=== PATIENT | female | born 1980 | race Caucasian/White ===

== ENCOUNTER 2018-10-10 16:12 | Emergency (ER) | payer MEDICARE, MEDICAID ==
[~2018-10-10] VITALS: Ht 172.7 cm; Wt 70.4 kg
[2018-10-10 16:39] VITALS: BP 118/51
== END 2018-10-10 23:09 | disposition left against medical advice (07) ==
LOC: ER 16:12
DX: N89.8 Other specified noninflammatory disorders of vagina (principal); Z53.21 Procedure and treatment not carried out due to patient leaving prior to being seen by health care provider

== ENCOUNTER 2018-12-28 14:24 | Emergency (ER) | payer MEDICARE, MEDICAID ==
[~2018-12-28] VITALS: Ht 167.6 cm; Wt 70.9 kg
[2018-12-28] MEDS ORDERED: albuterol 2.5 mg/0.5ml nebule NEB ONE (14:55)
[2018-12-28] MEDS ORDERED: albuterol 2.5 MG/3 ML nebule NEB ONE (15:00)
[2018-12-28] MEDS ORDERED: albuterol 2.5 MG/3 ML nebule ONE (15:24)
--- NOTE | 2018-12-28 15:27 | NUR ---
RT AT BEDSIDE TO ADMINISTER BREATHING TREATMENT.
[2018-12-28 16:34] VITALS: BP 108/71
[2018-12-28] MEDS ORDERED: ALBU8HFA PO (21:16)
== END 2018-12-28 16:35 | disposition home or self-care (01) ==
LOC: ER 14:25
DX: J06.9 Acute upper respiratory infection, unspecified (principal); Z87.891 Personal history of nicotine dependence; Z88.2 Allergy status to sulfonamides
CPT/HCPCS: 36415; 87502; 87503; 93005; 94640; 99284; J7611

== ENCOUNTER 2018-12-28 19:49 | Emergency (ER) | payer MEDICARE, MEDICAID ==
[~2018-12-28] VITALS: Ht 167.6 cm; Wt 72.7 kg
[2018-12-28] MEDS ORDERED: ALBU8HFA PO (21:16)
[2018-12-28 21:20] VITALS: BP 135/76
== END 2018-12-28 21:21 | disposition home or self-care (01) ==
LOC: ER 19:50
DX: O99.519 Diseases of the respiratory system complicating pregnancy, unspecified trimester (principal); J45.901 Unspecified asthma with (acute) exacerbation; Z76.0 Encounter for issue of repeat prescription; Z88.2 Allergy status to sulfonamides; Z3A.00 Weeks of gestation of pregnancy not specified
CPT/HCPCS: 93005; 99283

== ENCOUNTER 2019-02-02 14:18 | Emergency (ER) | payer MEDICARE, MEDICAID ==
[~2019-02-02] VITALS: Ht 167.6 cm; Wt 75.0 kg
[2019-02-02 14:49] LABS: BASOPHILS # (AUTO) 0.1 X10'3 (0-0.2); BASOPHILS % (AUTO) 0.5 % (0-1); EOSINOPHILS # (AUTO) 0.2 X10'3 (0-0.9); EOSINOPHILS % (AUTO) 1.3 % (0-6); HEMOGLOBIN 12.1 g/dl (12.0-16.0); LYMPHOCYTES # (AUTO) 2.1 X10'3 (1.1-4.8); LYMPHOCYTES % (AUTO) 14.8 % (21-51); MEAN CORPUSCULAR HEMOGLOBIN 31.2 PG (27.0-31.0); MEAN CORPUSCULAR HGB CONC 34.6 g/dL (33.0-36.5); MEAN CORPUSCULAR VOLUME 90.4 FL (78-98); MEAN PLATELET VOLUME 8.8 FL (7.4-10.4); MONOCYTES # (AUTO) 0.6 X10'3 (0-0.9); MONOCYTES % (AUTO) 4.1 % (2-12); NEUTROPHILS # (AUTO) 11.2 X10'3 (1.8-7.7); NEUTROPHILS % (AUTO) 79.3 % (42-75); PLATELET COUNT 259 X10'3 (140-440); RED BLOOD COUNT 3.88 X10'6 (4.20-5.60); RED CELL DISTRIBUTION WIDTH 13.4 % (11.5-14.5); WHITE BLOOD COUNT 14.2 X10'3 (4.5-11.0)
[2019-02-02 14:52] LABS: URINE HCG NEGATIVE (NEG)
[2019-02-02 14:54] LABS: CLARITY,URINE CLEAR (Clear); COLOR,URINE YELLOW (Yellow); GLUCOSE, URINE NEGATIVE (Neg); KETONES,URINE TRACE mg/dl (Neg); LEUKOCYTE ESTERASE ,URINE NEGATIVE (Neg); NITRITES, URINE NEGATIVE (Neg); OCCULT BLOOD,URINE TRACE-INTACT (Neg); PROTEIN,URINE NEGATIVE (Neg); UA COLLECTION TYPE CLN CATCH MIDSTREAM
[2019-02-02 14:58] LABS: URINE AMPHETAMINE SCREEN NEGATIVE (Neg); URINE BARBITUATE SCREEN NEGATIVE (Neg); URINE BENZODIAZEPINES SCREEN NEGATIVE (Neg); URINE CANNABINOID SCREEN NEGATIVE (Neg); URINE COCAINE SCREEN NEGATIVE (Neg); URINE METHADONE SCREEN NEGATIVE (Neg); URINE OPIATE SCREEN NEGATIVE (Neg); URINE PHENCYCLIDINE SCREEN NEGATIVE (Neg)
--- NOTE | 2019-02-02 14:58 | NUR ---
PT IS MAKING BIZARRE STATEMENTS ABOUT NEEDING SURGERY FROM [facility] AND THAT HER SENIOR BI DEVELOPER ONLY SENT HER TO ER BECAUSE HE WANTS TO GET HER MEDICARE.
[2019-02-02 15:03] LABS: BACTERIA,URINE 2+ /HPF (Neg); MUCUS STRANDS MODERATE /LPF (Neg); SQUAMOUS EPITHELIAL CELL,UR MODERATE /LPF (FEW)
[2019-02-02 15:06] LABS: RBC,URINE 0-2 /HPF (0-2); WBC,URINE 0-4 /HPF (0-4)
[2019-02-02 15:12] LABS: ALANINE AMINOTRANSFERASE 14 U/L (12-78); ALBUMIN 3.6 G/DL (3.4-5.0); ALBUMIN/GLOBULIN RATIO 1.3 (1.1-1.5); ALKALINE PHOSPHATASE 59 IU/L (46-116); ANION GAP 5 (8-16); ASPARTATE AMINO TRANSFERASE 11 U/L (10-37); BILIRUBIN,TOTAL 0.2 MG/DL (0.1-1.0); BLOOD UREA NITROGEN 12 MG/DL (7-18); BUN/CREATININE RATIO 12.9 (6.6-38.0); CALCIUM 8.8 MG/DL (8.5-10.1); CHLORIDE 104 MMOL/L (99-107); CREATININE 0.93 MG/DL (0.40-0.90); ETHANOL < 0.010 GM/DL (0.0-0.010); GLUCOSE 102 MG/DL (70-104); SODIUM 141 MMOL/L (135-145); TOTAL CARBON DIOXIDE 32.3 MMOL/L (24-32); TOTAL PROTEIN 6.4 G/DL (6.4-8.2); eGFR 68 ML/MIN
[2019-02-02 15:13] LABS: POTASSIUM 2.8 MMOL/L (3.5-5.1)
[2019-02-02] MEDS ORDERED: magnesium oxide 400mg tablet PO ONE (15:20)
[2019-02-02] MEDS ORDERED: potassium Cl 20 mEq SR tablet PO STA (15:20)
[2019-02-02] MEDS ORDERED: NO HOME MEDS (15:27)
[2019-02-02] MEDS ORDERED: potassium Cl 20 mEq SR tablet PO ONE (16:00)
--- NOTE | 2019-02-02 17:24 | NUR ---
Pt alert, cooperative and hyperverbal. Spending a lot of time talking to staff about a variety of topics and critical of the process of being held. Elopement band placed on pt as she began to hover around the exit and express not wanting to be here. Denies SI.
[2019-02-02] MEDS: nicotine 7mg patch - 24hr TD SCH (18:40)
--- NOTE | 2019-02-02 18:44 | NUR ---
Received report. Patient given her nicotine patch. Stated that she threw up her dinner in the bathroom. Laying on her back with mask over her face at this time. No further c/o n/v.
--- NOTE | 2019-02-02 19:16 | NUR ---
Patient asking for a book to have something to do. talking about all the jobs she has had etc.....
--- NOTE | 2019-02-02 20:15 | NUR ---
Patient sitting up reading a book. Requests extra blankets, pillows, and to have help getting comfortable with bed adjustments. Patient very talkative.
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
--- NOTE | 2019-02-02 22:06 | NUR ---
patient continues to ask for food, drinks and warm clothes. She wants hot chocolate, Triskits and long sleeves. I got her some warm tea and explained that we do not have the things she is wanting. I have already given her 3 warm blankets and a sandwich, cheese and yogurt. She is now requesting to move to a different bed.
--- NOTE | 2019-02-02 22:33 | NUR ---
Patient provided a eye mask. She again wants me to readjust her bed and more pillows. She has 2 pillows already. Provided help with bed adjustments.
--- NOTE | 2019-02-02 23:33 | NUR ---
patient given crackers and juice. now quietly resting with eye mask on.
--- NOTE | 2019-02-03 01:21 | NUR ---
Patient seems bored. Asking for something to do. Coloring papers, crayons and books have been offered. She continues to ask for pretzels and snacks. Continuing to talk about healthcare and ask for referrals to doctors and providers. Informed her that as a health care provider, I am not able to make referrals. That she should look on the internet or go through her insurance carrier.
--- NOTE | 2019-02-03 02:48 | NUR ---
patient now in bed with eye mask on. She hung out at nursing station for about an hour discussing her family dynamics and again with previous jobs she has held.
--- NOTE | 2019-02-03 05:01 | NUR ---
patient had another snack. appears to be asleep at this time.
--- NOTE | 2019-02-03 06:30 | NUR ---
Sleeping soundly upon change of shift observation. No signs or symptoms of distress. Undisturbed at this time.
[2019-02-03] MEDS: nicotine 7mg patch - 24hr TD SCH (08:00)
--- NOTE | 2019-02-03 08:00 | NUR ---
Awakened for breakfast. Picked at her food.Returned to sleep immediately afterward.
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
--- NOTE | 2019-02-03 12:40 | NUR ---
pt is in bed supine, refused lab draw, will inform
--- NOTE | 2019-02-03 13:12 | NUR ---
spoke to pt re: lab draw, she says she does not care that her k is low, does not care about her other labs, she states that the poassium made her ill this morning and that she is not going to take it, I explained that there are other routes to give the medication, she refused labs again, said that she ate a banana, she will be fine
--- NOTE | 2019-02-03 13:57 | NUR ---
Patient agreed to lab draw at this time. Blood drawn by Hakan abdalla
[2019-02-03] MEDS ORDERED: nicotine 7mg patch - 24hr TD SCH (14:18)
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
--- NOTE | 2019-02-03 14:58 | NUR ---
Asking staff repeatedly to take her outside for a cigarette. Unable to accept that this is a non-smoking hospital. Obscessed with the need to go outside and smoke. Given a nicotine patch to help with nicotine cravings.
--- NOTE | 2019-02-03 17:08 | NUR ---
Call received from Jana at [facility] for nurse to nurse report. Report given.
[2019-02-03 17:18] VITALS: BP 111/61
--- NOTE | 2019-02-03 17:21 | NUR ---
Call received from Eleni from the [facility] office stating patient had been accepted to [facility] by Dr. Greer. Distribution Agent will be here in approximately 30 minutes to transport patient.
--- NOTE | 2019-02-03 18:14 | NUR ---
Patient standing at nursing station talking to the tech regarding her belongings. He continues to educate her that her belonging will be going with her but she couldnt have them at this time.
--- NOTE | 2019-02-03 18:20 | NUR ---
Patient ride here to discharge patient to another facility.
== END 2019-02-03 18:20 ==
LOC: ER 14:18
DX: R45.851 Suicidal ideations (principal); F10.129 Alcohol abuse with intoxication, unspecified; R44.0 Auditory hallucinations; E87.6 Hypokalemia; Z88.2 Allergy status to sulfonamides; Y90.9 Presence of alcohol in blood, level not specified
CPT/HCPCS: 36415; 80053; 80305; 80320; 81001; 81025; 84132; 84443; 85025; 99285

== ENCOUNTER 2020-01-16 20:17 | Emergency (ER) | payer MEDICAID, MEDICARE ==
[~2020-01-16] VITALS: Ht 172.7 cm; Wt 85.0 kg
[~2020-01-16 20:17] MED LIST: NO HOME MEDS
[2020-01-16 20:24] VITALS: BP 129/85
[2020-01-16] MEDS ORDERED: CLIN-97 PO ×2 (20:40→21:06)
[2020-01-16] MEDS ORDERED: HYDR-3965 PO ×2 (20:40→21:06)
== END 2020-01-16 21:13 | disposition home or self-care (01) ==
LOC: ER 20:18
DX: K08.89 Other specified disorders of teeth and supporting structures (principal); Z88.2 Allergy status to sulfonamides; Z79.2 Long term (current) use of antibiotics
CPT/HCPCS: 99283

== ENCOUNTER 2020-01-21 19:25 | Emergency (ER) | payer MEDICARE ==
[~2020-01-21] VITALS: Ht 172.7 cm; Wt 85.9 kg
[~2020-01-21 19:25] MED LIST changes: +CLIN-97 PO
[2020-01-21 19:30] VITALS: BP 121/84
[2020-01-21] MEDS ORDERED: TRAM50TA2 PO (19:55)
== END 2020-01-21 20:10 | disposition home or self-care (01) ==
LOC: ER 19:26
DX: K08.89 Other specified disorders of teeth and supporting structures (principal); Z88.0 Allergy status to penicillin; Z88.2 Allergy status to sulfonamides; Z79.2 Long term (current) use of antibiotics; Z79.899 Other long term (current) drug therapy
CPT/HCPCS: 99283

== ENCOUNTER 2020-02-14 19:39 | Emergency (ER) | payer MEDICARE ==
[~2020-02-14] VITALS: Ht 172.7 cm; Wt 86.7 kg
[2020-02-14 19:43] VITALS: BP 161/92
== END 2020-02-14 20:11 | disposition home or self-care (01) ==
LOC: ER 19:40
DX: J31.2 Chronic pharyngitis (principal); M79.675 Pain in left toe(s); G89.29 Other chronic pain; Z88.0 Allergy status to penicillin; Z88.2 Allergy status to sulfonamides; Z79.2 Long term (current) use of antibiotics
CPT/HCPCS: 99282

== ENCOUNTER 2020-02-25 20:23 | Emergency (ER) | payer MEDICARE ==
[~2020-02-25] VITALS: Ht 172.7 cm; Wt 84.0 kg
[2020-02-25 20:27] VITALS: BP 155/86
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
[2020-02-25] MEDS ORDERED: DICY10CA88 PO (21:49)
[2020-02-25] MEDS ORDERED: PROM12.512 PO (21:49)
== END 2020-02-25 21:55 | disposition home or self-care (01) ==
LOC: ER 20:23
DX: R11.0 Nausea (principal); Z88.0 Allergy status to penicillin; Z88.2 Allergy status to sulfonamides; Z79.899 Other long term (current) drug therapy
CPT/HCPCS: 99283

== ENCOUNTER 2020-03-15 19:22 | Emergency (ER) | payer MEDICARE ==
[~2020-03-15] VITALS: Ht 175.3 cm; Wt 85.9 kg
[~2020-03-15 19:22] MED LIST changes: +DICY10CA88 PO; +PROM12.512 PO
--- NOTE | 2020-03-15 19:45 | NUR ---
SPOKE WITH EDMD ELIJAH REGARDING PT COMPLAINTS DURING TRIAGE, NO EKG OR BLOOD WORK AT THIS TIME PER ELIJAH.
[2020-03-15 20:33] LABS: BASOPHILS # (AUTO) 0.1 X10'3 (0-0.2); BASOPHILS % (AUTO) 1.1 % (0-1); EOSINOPHILS # (AUTO) 0.2 X10'3 (0-0.9); EOSINOPHILS % (AUTO) 2.8 % (0-6); HEMATOCRIT 41.1 % (35.0-45.0); LYMPHOCYTES % (AUTO) 34.6 % (21-51); MEAN CORPUSCULAR HEMOGLOBIN 31.4 PG (27.0-31.0); MEAN CORPUSCULAR VOLUME 92.1 FL (78-98); MEAN PLATELET VOLUME 9.6 FL (7.4-10.4); MONOCYTES # (AUTO) 0.5 X10'3 (0-0.9); MONOCYTES % (AUTO) 6.4 % (2-12); NEUTROPHILS # (AUTO) 4.7 X10'3 (1.8-7.7); NEUTROPHILS % (AUTO) 55.1 % (42-75); PLATELET COUNT 194 X10'3 (140-440); RED BLOOD COUNT 4.46 X10'6 (4.20-5.60); RED CELL DISTRIBUTION WIDTH 14.1 % (11.5-14.5); WHITE BLOOD COUNT 8.6 X10'3 (4.5-11.0)
[2020-03-15] MEDS ORDERED: famotidine 20mg tablet PO ONE (20:45)
[2020-03-15] MEDS ORDERED: ondansetron 4mg rapidly disintigrating tab PO ONE (20:45)
[2020-03-15 20:46] LABS: ALANINE AMINOTRANSFERASE 33 U/L (12-78); ALBUMIN 3.6 G/DL (3.4-5.0); ALBUMIN/GLOBULIN RATIO 1.2 (1.1-1.5); ALKALINE PHOSPHATASE 63 IU/L (46-116); ANION GAP 9 (8-16); ASPARTATE AMINO TRANSFERASE 20 U/L (10-37); BILIRUBIN,TOTAL 0.2 MG/DL (0.1-1.0); BLOOD UREA NITROGEN 9 MG/DL (7-18); BUN/CREATININE RATIO 10.6 (6.6-38.0); CALCIUM 8.4 MG/DL (8.5-10.1); CHLORIDE 108 MMOL/L (99-107); CREATININE 0.85 MG/DL (0.40-0.90); GLUCOSE 88 MG/DL (70-104); LIPASE 107 U/L (73-393); POTASSIUM 3.7 MMOL/L (3.5-5.1); SODIUM 144 MMOL/L (135-145); TOTAL PROTEIN 6.6 G/DL (6.4-8.2); eGFR 75 ML/MIN
[2020-03-15 20:53] LABS: CLARITY,URINE CLEAR (Clear); COLOR,URINE YELLOW (Yellow); GLUCOSE, URINE NEGATIVE (Neg); KETONES,URINE NEGATIVE (Neg); LEUKOCYTE ESTERASE ,URINE NEGATIVE (Neg); NITRITES, URINE NEGATIVE (Neg); OCCULT BLOOD,URINE NEGATIVE (Neg); PROTEIN,URINE NEGATIVE (Neg); UROBILINOGEN,URINE 0.2 E.U/dL (0.2-1.0)
[2020-03-15 20:55] LABS: UA COLLECTION TYPE CLN CATCH MIDSTREAM; URINE HCG NEGATIVE (NEG)
[2020-03-15] MEDS ORDERED: FAMO-128 PO (21:02)
[2020-03-15 21:20] VITALS: BP 125/87
== END 2020-03-15 21:21 | disposition home or self-care (01) ==
LOC: ER 19:23
DX: R11.2 Nausea with vomiting, unspecified (principal); R10.9 Unspecified abdominal pain; Z88.0 Allergy status to penicillin; Z88.2 Allergy status to sulfonamides; Z79.2 Long term (current) use of antibiotics; Z79.899 Other long term (current) drug therapy
CPT/HCPCS: 36415; 80053; 81003; 81025; 83690; 85025; 99283

== ENCOUNTER 2020-04-03 17:11 | Emergency (ER) | payer MEDICARE, MEDICAID ==
[~2020-04-03] VITALS: Ht 180.3 cm; Wt 95.0 kg
[~2020-04-03 17:11] MED LIST changes: +FAMO-128 PO
[2020-04-03 17:17] VITALS: BP 147/97
== END 2020-04-03 18:34 | disposition home or self-care (01) ==
LOC: ER 17:12
DX: R09.89 Other specified symptoms and signs involving the circulatory and respiratory systems (principal); F17.200 Nicotine dependence, unspecified, uncomplicated; F12.90 Cannabis use, unspecified, uncomplicated; Z72.89 Other problems related to lifestyle; Z00.00 Encounter for general adult medical examination without abnormal findings; Z88.0 Allergy status to penicillin; Z88.2 Allergy status to sulfonamides; Z79.899 Other long term (current) drug therapy
CPT/HCPCS: 99281; 99282

== ENCOUNTER 2020-04-13 06:44 | Emergency (ER) | payer MEDICARE, MEDICAID ==
[~2020-04-13] VITALS: Ht 165.1 cm; Wt 72.0 kg
[2020-04-13 07:29] VITALS: BP 131/76
== END 2020-04-13 07:33 | disposition home or self-care (01) ==
LOC: ER 06:45
DX: H53.8 Other visual disturbances (principal); Z00.8 Encounter for other general examination
CPT/HCPCS: 99281; 99282

== ENCOUNTER 2020-04-18 23:41 | Emergency (ER) | payer MEDICARE, MEDICAID ==
[~2020-04-18] VITALS: Ht 172.7 cm; Wt 86.4 kg
[2020-04-19] MEDS ORDERED: bacitracin 15gm ointment TP ONE (00:20)
[2020-04-19 00:49] VITALS: BP 112/74
== END 2020-04-19 00:48 | disposition home or self-care (01) ==
LOC: ER 23:42
DX: L70.0 Acne vulgaris (principal); J45.909 Unspecified asthma, uncomplicated; F12.90 Cannabis use, unspecified, uncomplicated; Z88.0 Allergy status to penicillin; Z88.2 Allergy status to sulfonamides
CPT/HCPCS: 99283

== ENCOUNTER 2020-05-05 02:25 | Emergency (ER) | payer MEDICARE, MEDICAID ==
[~2020-05-05] VITALS: Ht 172.7 cm; Wt 85.0 kg
[2020-05-05 02:32] VITALS: BP 130/72
[2020-05-05] MEDS ORDERED: FAMO40TA73 PO (02:40)
[2020-05-05] MEDS ORDERED: ONDA8TAB6 PO (02:40)
[2020-05-05] MEDS ORDERED: CLIN-97 PO (02:40)
== END 2020-05-05 02:48 | disposition home or self-care (01) ==
LOC: ER 02:25
DX: K08.89 Other specified disorders of teeth and supporting structures (principal); J45.909 Unspecified asthma, uncomplicated; F12.90 Cannabis use, unspecified, uncomplicated; Z86.69 Personal history of other diseases of the nervous system and sense organs; Z88.0 Allergy status to penicillin; Z88.2 Allergy status to sulfonamides; Z79.2 Long term (current) use of antibiotics; Z79.899 Other long term (current) drug therapy
CPT/HCPCS: 99283

== ENCOUNTER 2020-05-12 13:58 | Emergency (ER) | payer MEDICARE, MEDICAID ==
[~2020-05-12] VITALS: Ht 172.7 cm; Wt 84.5 kg
[~2020-05-12 13:58] MED LIST changes: +FAMO40TA73 PO; +ONDA8TAB6 PO
[2020-05-12 15:01] VITALS: BP 126/74
== END 2020-05-12 15:02 | disposition home or self-care (01) ==
LOC: ER 13:59
DX: J02.9 Acute pharyngitis, unspecified (principal); J45.909 Unspecified asthma, uncomplicated; F12.90 Cannabis use, unspecified, uncomplicated; Z86.69 Personal history of other diseases of the nervous system and sense organs; Z72.89 Other problems related to lifestyle; Z88.0 Allergy status to penicillin; Z88.2 Allergy status to sulfonamides; Z79.2 Long term (current) use of antibiotics; Z79.899 Other long term (current) drug therapy
CPT/HCPCS: 99281

== ENCOUNTER 2020-05-19 19:18 | Emergency (ER) | payer MEDICARE, MEDICAID ==
[~2020-05-19] VITALS: Ht 172.7 cm; Wt 84.5 kg
[2020-05-19 20:51] VITALS: BP 116/73
== END 2020-05-19 20:53 | disposition home or self-care (01) ==
LOC: ER 19:19
DX: R41.0 Disorientation, unspecified (principal); J45.909 Unspecified asthma, uncomplicated; F12.90 Cannabis use, unspecified, uncomplicated; Z00.00 Encounter for general adult medical examination without abnormal findings; Z86.69 Personal history of other diseases of the nervous system and sense organs; Z72.89 Other problems related to lifestyle; Z88.0 Allergy status to penicillin; Z88.2 Allergy status to sulfonamides; Z79.2 Long term (current) use of antibiotics; Z79.899 Other long term (current) drug therapy
CPT/HCPCS: 99281; 99283

== ENCOUNTER 2020-10-15 13:03 | Emergency (ER) | payer MEDICARE, MEDICAID ==
[~2020-10-15] VITALS: Ht 172.7 cm; Wt 59.0 kg
[2020-10-15 13:11] VITALS: BP 117/82
[2020-10-15] MEDS ORDERED: ketorolac trometh. 30mg/ml inj. IM ONE (15:15)
[2020-10-15] MEDS ORDERED: CYCL-394 PO (15:21)
== END 2020-10-15 15:36 | disposition home or self-care (01) ==
LOC: ER 13:04
DX: M62.831 Muscle spasm of calf (principal); M54.5 Low back pain; J45.909 Unspecified asthma, uncomplicated; F12.90 Cannabis use, unspecified, uncomplicated; Z86.69 Personal history of other diseases of the nervous system and sense organs; Z72.89 Other problems related to lifestyle; Z88.0 Allergy status to penicillin; Z88.2 Allergy status to sulfonamides; Z79.899 Other long term (current) drug therapy
CPT/HCPCS: 96372; 99283; J1885

== ENCOUNTER 2021-04-01 14:04 | Emergency (ER) | payer MEDICARE, MEDICAID ==
[~2021-04-01] VITALS: Ht 172.7 cm; Wt 73.9 kg
[2021-04-01 14:49] VITALS: BP 144/83
[2021-04-01 17:03] LABS: BASOPHILS % (AUTO) 0.5 % (0-1); EOSINOPHILS # (AUTO) 0.1 X10'3 (0-0.9); EOSINOPHILS % (AUTO) 1.9 % (0-6); HEMATOCRIT 42.5 % (35.0-45.0); HEMOGLOBIN 14.3 g/dl (12.0-16.0); LYMPHOCYTES # (AUTO) 2.1 X10'3 (1.1-4.8); LYMPHOCYTES % (AUTO) 31.5 % (21-51); MEAN CORPUSCULAR HEMOGLOBIN 31.1 PG (27.0-31.0); MEAN CORPUSCULAR HGB CONC 33.6 g/dL (33.0-36.5); MEAN CORPUSCULAR VOLUME 92.6 FL (78-98); MEAN PLATELET VOLUME 9.1 FL (7.4-10.4); MONOCYTES # (AUTO) 0.4 X10'3 (0-0.9); MONOCYTES % (AUTO) 5.5 % (2-12); NEUTROPHILS # (AUTO) 4.1 X10'3 (1.8-7.7); NEUTROPHILS % (AUTO) 60.6 % (42-75); PLATELET COUNT 216 X10'3 (140-440); RED BLOOD COUNT 4.58 X10'6 (4.20-5.60); RED CELL DISTRIBUTION WIDTH 14.3 % (11.5-14.5); WHITE BLOOD COUNT 6.7 X10'3 (4.5-11.0)
[2021-04-01 17:18] LABS: ALANINE AMINOTRANSFERASE 19 U/L (12-78); ALBUMIN 3.8 G/DL (3.4-5.0); ALBUMIN/GLOBULIN RATIO 1.2 (1.1-1.5); ALKALINE PHOSPHATASE 58 IU/L (46-116); ANION GAP 7 (8-16); ASPARTATE AMINO TRANSFERASE 20 U/L (10-37); BILIRUBIN,TOTAL 0.2 MG/DL (0.1-1.0); BLOOD UREA NITROGEN 9 MG/DL (7-18); BUN/CREATININE RATIO 14.5 (6.6-38.0); CALCIUM 8.1 MG/DL (8.5-10.1); CHLORIDE 105 MMOL/L (99-107); CREATININE 0.62 MG/DL (0.40-0.90); GLUCOSE 98 MG/DL (70-104); LIPASE 82 U/L (73-393); POTASSIUM 3.9 MMOL/L (3.5-5.1); SODIUM 137 MMOL/L (135-145); TOTAL CARBON DIOXIDE 25.3 MMOL/L (24-32); TOTAL PROTEIN 7.1 G/DL (6.4-8.2); eGFR > 90 ML/MIN
[2021-04-01 17:24] LABS: CLARITY,URINE SLIGHTLY CLOUDY (Clear); COLOR,URINE YELLOW (Yellow); GLUCOSE, URINE NEGATIVE (Neg); KETONES,URINE NEGATIVE (Neg); LEUKOCYTE ESTERASE ,URINE NEGATIVE (Neg); NITRITES, URINE NEGATIVE (Neg); OCCULT BLOOD,URINE NEGATIVE (Neg); PROTEIN,URINE NEGATIVE (Neg); UROBILINOGEN,URINE 0.2 E.U/dL (0.2-1.0)
[2021-04-01 17:25] LABS: UA COLLECTION TYPE CLN CATCH MIDSTREAM
[2021-04-01 17:48] LABS: SQUAMOUS EPITHELIAL CELL,UR MODERATE /LPF (FEW)
[2021-04-01 17:49] LABS: BACTERIA,URINE 2+ /HPF (Neg)
[2021-04-01 17:50] LABS: RBC,URINE 0-2 /HPF (0-2); WBC,URINE 0-4 /HPF (0-4)
== END 2021-04-01 18:25 | disposition home or self-care (01) ==
LOC: ER 14:04
DX: R10.11 Right upper quadrant pain (principal); R51.9 Headache, unspecified; R09.82 Postnasal drip; J34.89 Other specified disorders of nose and nasal sinuses; R09.81 Nasal congestion; F12.90 Cannabis use, unspecified, uncomplicated; J45.909 Unspecified asthma, uncomplicated; Z86.69 Personal history of other diseases of the nervous system and sense organs; Z72.89 Other problems related to lifestyle; Z88.0 Allergy status to penicillin; Z88.2 Allergy status to sulfonamides; Z79.2 Long term (current) use of antibiotics; Z79.899 Other long term (current) drug therapy
CPT/HCPCS: 36415; 76700; 80053; 81001; 83690; 85025; 99284

== ENCOUNTER 2022-09-15 21:49 | Emergency (ER) | payer MEDICARE, MEDICAID ==
[~2022-09-15] VITALS: Ht 172.7 cm; Wt 77.3 kg
[2022-09-15 22:19] VITALS: BP 114/77
[2022-09-15] MEDS ORDERED: HYDROcodone/acetaminophen 5mg/325mg tablet PO ONE (22:45)
[2022-09-15] MEDS ORDERED: clindamycin 150mg capsule PO ONE (22:45)
[2022-09-15] MEDS ORDERED: ONDA4TAB12 PO (22:48)
[2022-09-15] MEDS ORDERED: HYDR-3965 PO (22:48)
[2022-09-15] MEDS ORDERED: CLIN300C70 PO (22:48)
== END 2022-09-15 23:13 | disposition home or self-care (01) ==
LOC: ER 21:50
DX: K08.89 Other specified disorders of teeth and supporting structures (principal); J45.909 Unspecified asthma, uncomplicated; F12.90 Cannabis use, unspecified, uncomplicated; Z86.69 Personal history of other diseases of the nervous system and sense organs; Z72.89 Other problems related to lifestyle; Z88.0 Allergy status to penicillin; Z88.2 Allergy status to sulfonamides; Z79.2 Long term (current) use of antibiotics; Z79.899 Other long term (current) drug therapy
CPT/HCPCS: 99283

== ENCOUNTER 2023-01-31 00:09 | Emergency (ER) | payer MEDICARE, MEDICAID ==
[~2023-01-31] VITALS: Ht 170.2 cm; Wt 86.8 kg
[~2023-01-31 00:09] MED LIST changes: +ONDA4TAB12 PO
[2023-01-31 00:24] VITALS: BP 116/85
== END 2023-01-31 03:12 | disposition left against medical advice (07) ==
LOC: ER 00:10
DX: K08.89 Other specified disorders of teeth and supporting structures (principal); Z53.21 Procedure and treatment not carried out due to patient leaving prior to being seen by health care provider
CPT/HCPCS: 99281

== ENCOUNTER 2023-07-01 00:14 | Emergency (ER) | payer MEDICARE, MEDICAID ==
[~2023-07-01] VITALS: Ht 175.3 cm; Wt 72.7 kg
[2023-07-01 01:31] LABS: BASOPHILS # (AUTO) 0.1 X10'3 (0-0.2); BASOPHILS % (AUTO) 0.6 % (0-1); EOSINOPHILS # (AUTO) 0.3 X10'3 (0-0.9); EOSINOPHILS % (AUTO) 2.2 % (0-6); HEMATOCRIT 39.4 % (35.0-45.0); HEMOGLOBIN 13.2 g/dl (12.0-16.0); LYMPHOCYTES # (AUTO) 2.7 X10'3 (1.1-4.8); LYMPHOCYTES % (AUTO) 18.9 % (21-51); MEAN CORPUSCULAR HEMOGLOBIN 30.3 PG (27.0-31.0); MEAN CORPUSCULAR HGB CONC 33.6 g/dL (33.0-36.5); MEAN CORPUSCULAR VOLUME 90.2 FL (78-98); MEAN PLATELET VOLUME 9.3 FL (7.4-10.4); MONOCYTES # (AUTO) 0.7 X10'3 (0-0.9); MONOCYTES % (AUTO) 4.7 % (2-12); NEUTROPHILS # (AUTO) 10.5 X10'3 (1.8-7.7); NEUTROPHILS % (AUTO) 73.6 % (42-75); PLATELET COUNT 209 X10'3 (140-440); RED BLOOD COUNT 4.37 X10'6 (4.20-5.60); RED CELL DISTRIBUTION WIDTH 13.9 % (11.5-14.5); WHITE BLOOD COUNT 14.3 X10'3 (4.5-11.0)
[2023-07-01 01:41] LABS: ALANINE AMINOTRANSFERASE 44 U/L (12-78); ALBUMIN 3.6 G/DL (3.4-5.0); ALBUMIN/GLOBULIN RATIO 1.1 (1.1-1.5); ALKALINE PHOSPHATASE 66 IU/L (46-116); ANION GAP 7 (8-16); ASPARTATE AMINO TRANSFERASE 48 U/L (10-37); BILIRUBIN,TOTAL 0.5 MG/DL (0.1-1.0); BLOOD UREA NITROGEN 19 MG/DL (7-18); BUN/CREATININE RATIO 25.7 (10.0-20.0); CALCIUM 8.8 MG/DL (8.5-10.1); CHLORIDE 102 MMOL/L (99-107); CREATININE 0.74 MG/DL (0.40-0.90); GLUCOSE 91 MG/DL (70-104); POTASSIUM 3.3 MMOL/L (3.5-5.1); SODIUM 138 MMOL/L (135-145); TOTAL CARBON DIOXIDE 29.2 MMOL/L (24-32); TOTAL PROTEIN 6.8 G/DL (6.4-8.2); eCRCL 105 ML/MIN; eGFR 86 ML/MIN
[2023-07-01 01:51] LABS: MAGNESIUM 2.1 MG/DL (1.5-2.4)
[2023-07-01 01:52] LABS: CREATINE KINASE 1162 U/L (26-192)
[2023-07-01] MEDS ORDERED: normal saline 1000ML IV soln IVB ONE (03:10)
[2023-07-01] MEDS ORDERED: ondansetron 4mg rapidly disintigrating tab PO ONE (03:15)
[2023-07-01] MEDS ORDERED: POTASSIUM BICARB 20meq eff tab 20 MEQ TABLET.EFF PO ONE (03:15)
[2023-07-01 05:45] LABS: URINE HCG NEGATIVE (NEG)
[2023-07-01 05:48] LABS: BILIRUBIN,URINE NEGATIVE (Neg); COLOR,URINE STRAW (Yellow); GLUCOSE, URINE NEGATIVE (Neg); KETONES,URINE 15 mg/dl (Neg); LEUKOCYTE ESTERASE ,URINE TRACE (Neg); NITRITES, URINE NEGATIVE (Neg); OCCULT BLOOD,URINE TRACE-INTACT (Neg); PROTEIN,URINE NEGATIVE (Neg); UROBILINOGEN,URINE 0.2 E.U/dL (0.2-1.0)
[2023-07-01 05:55] LABS: CLARITY,URINE SLIGHTLY CLOUDY (Clear); UA COLLECTION TYPE CLN CATCH MIDSTREAM; URINE AMPHETAMINE SCREEN POSITIVE (Neg); URINE BARBITUATE SCREEN NEGATIVE (Neg); URINE BENZODIAZEPINES SCREEN NEGATIVE (Neg); URINE CANNABINOID SCREEN NEGATIVE (Neg); URINE COCAINE SCREEN NEGATIVE (Neg); URINE METHADONE SCREEN NEGATIVE (Neg); URINE OPIATE SCREEN NEGATIVE (Neg); URINE PHENCYCLIDINE SCREEN NEGATIVE (Neg)
[2023-07-01 05:57] LABS: WBC,URINE 0-4 /HPF (0-4)
[2023-07-01 05:58] LABS: BACTERIA,URINE 2+ /HPF (Neg); MUCUS STRANDS FEW /LPF (Neg); RBC,URINE 0-2 /HPF (0-2); SQUAMOUS EPITHELIAL CELL,UR MODERATE /LPF (FEW)
[2023-07-01] MEDS ORDERED: acetaminophen 325mg tablet PO ONE (06:05)
[2023-07-01 06:33] VITALS: BP 127/68; PULSE 95; RESP 16; TEMP 98.2; O2SAT 95
== END 2023-07-01 06:34 | disposition home or self-care (01) ==
LOC: ER 00:14
DX: L55.9 Sunburn, unspecified (principal); F15.10 Other stimulant abuse, uncomplicated; E87.6 Hypokalemia
CPT/HCPCS: 36415; 80053; 80305; 81001; 81025; 82550; 83735; 83874; 85025; 87088; 96360; 99284; J7030

== ENCOUNTER 2023-07-01 06:44 | Emergency (ER) | payer MEDICARE, MEDICAID ==
[~2023-07-01] VITALS: Ht 172.7 cm; Wt 90.0 kg
[2023-07-01 06:46] VITALS: TEMP 97.8
[2023-07-01 07:36] VITALS: BP 103/65; PULSE 94; RESP 18; O2SAT 99
== END 2023-07-01 08:09 | disposition left against medical advice (07) ==
LOC: ER 06:46
DX: R60.0 Localized edema (principal); Z53.21 Procedure and treatment not carried out due to patient leaving prior to being seen by health care provider
CPT/HCPCS: 99281

== ENCOUNTER 2023-07-08 14:20 | Emergency (ER) | payer MEDICARE, MEDICAID ==
[~2023-07-08] VITALS: Ht 177.8 cm; Wt 80.0 kg
[2023-07-08 17:06] LABS: STREP A SCREEN NEGATIVE (Neg)
[2023-07-08] MEDS ORDERED: diphenhydrAMINE 25 MG/10 ML UD oral solution PO ONE (17:35)
[2023-07-08] MEDS ORDERED: dexamethasone sod phosphate 10mg/ml inj IM STA (17:35)
[2023-07-08 18:49] VITALS: BP 125/80; PULSE 98; RESP 18; TEMP 98; O2SAT 98
== END 2023-07-08 18:51 | disposition home or self-care (01) ==
LOC: ER 14:21
DX: J02.9 Acute pharyngitis, unspecified (principal); J45.909 Unspecified asthma, uncomplicated
CPT/HCPCS: 87081; 87880; 96372; 99283; J1100; Q0163

== ENCOUNTER 2025-02-02 13:04 | Emergency (ER) | payer MEDICARE, MEDICAID ==
[~2025-02-02] VITALS: Ht 172.7 cm; Wt 94.3 kg
[~2025-02-02 13:04] MED LIST changes: +ONDA-243 PO; -ONDA4TAB12 PO
[2025-02-02 13:07] VITALS: TEMP 98.1
[2025-02-02 13:37] LABS: URINE HCG NEGATIVE (NEG)
[2025-02-02 13:47] LABS: BILIRUBIN,URINE NEGATIVE (Neg); CLARITY,URINE CLEAR (Clear); COLOR,URINE YELLOW (Yellow); GLUCOSE, URINE NEGATIVE (Neg); KETONES,URINE NEGATIVE (Neg); LEUKOCYTE ESTERASE ,URINE NEGATIVE (Neg); NITRITES, URINE NEGATIVE (Neg); OCCULT BLOOD,URINE MODERATE (Neg); PH,URINE 6.5 (4.8-8.0); PROTEIN,URINE NEGATIVE (Neg); UROBILINOGEN,URINE 0.2 E.U/dL (0.2-1.0)
[2025-02-02 13:55] LABS: UA COLLECTION TYPE CLN CATCH MIDSTREAM
[2025-02-02 13:56] LABS: WBC,URINE 0-4 /HPF (0-4)
[2025-02-02 13:57] LABS: BACTERIA,URINE FEW /HPF (Neg); SQUAMOUS EPITHELIAL CELL,UR MANY /LPF (FEW); TRANSITIONAL EPI CELLS,URINE FEW /HPF
--- NOTE | 2025-02-02 15:06 | Physician Documentation ---
History of Present Illness ~ Chief Complaint: Flank Pain Stated Complaint: KIDNEY STONE Time Seen by MD: 15:43 Primary Medical Doctor: [facility] DR. OLIVARES HPI This 44-year-old female who presents to the emergency department for urinary frequency and right flank pain. Patient states the pain has been there more significantly for the last six days. Patient states she has had some pain off and on in the right CVA area for about a year. Patient denies any dysuria or urinary frequency or urgency or fevers or chills. She reports that she was seen at an urgent care and gave a urine sample, and was told that she probably had a kidney stone. She is currently on antibiotics for urinary tract infection but her only symptom is frequency. She denies chills or fever, but does admit to some nausea without vomiting. Medication Reconciliation Allergies: Coded Allergies: Penicillins (Verified Allergy, Mild, rash, 07/08/23) Sulfa (Sulfonamide Antibiotics) (Unverified Allergy, Mild, RASH, 07/08/23) Scheduled Clindamycin HCL* (Clindamycin HCL*), 1 CAP PO Q8H Clindamycin HCL* (Clindamycin HCL*), 1 CAP PO Q8H Dicyclomine Hcl* (Bentyl*), 1 CAP PO Q12H Famotidine (Pepcid), 1 TAB PO Q12H Famotidine (Pepcid), 1 TAB PO DAILY ONDANSETRON ODT 4mg tablet (Ondansetron Odt), 1 TABLET PO Q6H Ondansetron Hcl (Zofran), 1 TAB PO Q8H Scheduled PRN Promethazine Hcl (Phenergan), 1 TAB PO BID PRN for prn Miscellaneous Medications Home Med List (No Home Medications), (Reported) Past Medical History Past Medical History: Seizures, Asthma Past Surgical History: no surgical history Alcohol Use: Occasionally Drug Use: marijuana Lives with: Family Lives In: Home Review of Systems ROS As stated above in the HPI, otherwise all systems are reviewed and negative. Constitutional: Denies: chills, fever, weakness Eyes: Denies: pain, blurred vision ENT: Denies: ear pain, nose pain, throat pain, mouth pain Respiratory: Denies: cough, shortness of breath Cardiovascular: Denies: chest pain, palpitations Gastrointestinal: Denies: abdominal pain, nausea, vomiting Genitourinary: Denies: burning, dysuria Female Genitalia: Denies: vaginal discharge, pelvic pain Neurological: Denies: headache, dizziness Musculoskeletal: Denies: pain, swelling Integumentary: Denies: rash, lesions Allergic/Immunologic: Denies: hives, itching Hematologic/Lymphatic: Denies: no symptoms reported Psychiatric: Denies: depression, anxiety Physical Exam Vital Signs: Temperature: 98.1, Source: Oral, Heart Rate: 111, Respiratory Rate: 16, BP: 102/65, Pulse Oximetry: 95, Weight: 94.300 Oxygen Flow Rate: 0 Physical Exam General: Alert, no apparent distress. Neck: Full range of motion. Respiratory: Lungs clear, no respiratory distress. Chest: No accessory muscle use. Cardiovascular: Regular rate and rhythm, no murmurs. Gastrointestinal: Abdomen is soft Soft, nondistended. Bowels sounds present. Right CVA tenderness, patient has negative Vargas's sign. She has mild tend erness to palpation diffusely throughout the abdomen. Extremities: Normal range of motion, no deformity. Neurologic: Oriented x4. Psychiatric: Normal mood and affect. Skin: Normal color, warm and dry. No edema, no ecchymosis. Progress Results/Orders Results/Orders Medications Received in ER Medications (Trade) Dose Ordered Sig/Gris Route PRN Reason Start Time Stop Time Status Last Admin Dose Admin (Zofran ODT tablet) 4 mg ONCE ONCE PO 02/02/25 15:05 02/02/25 15:06 DC 02/02/25 15:28 4 MG Vital Signs 02/02/25 02/02/25 13:07 15:33 Temp 98.1 Pulse 111 Resp 16 16 B/P (MAP) 102/65 Pulse Ox 95 O2 Flow Rate 0 Laboratory Tests Test 02/02/25 13:15 02/02/25 14:56 Urine Specimen Description Cln catch midstream Urine Color Yellow Urine Clarity Clear Urine pH 6.5 Urine Specific [place] <=1.005 Urine Protein Negative Urine Glucose (UA) Negative Urine Ketones Negative Urine Occult Blood Moderate H Urine Nitrite Negative Urine Bilirubin Negative Urine Urobilinogen 0.2 Urine Leukocyte Esterase Negative Urine RBC 3-10 Urine WBC 0-4 Urine Squamous Epithelial Cells Many Urine Transitional Epithelial Cells Few Urine Bacteria Few Urine Culture Indicated Not ind Volume Urine Centrifuged 10 ml Urine HCG, Qualitative Negative Urine Comment White Blood Count 6.4 Red Blood Count 4.72 Hemoglobin 14.3 Hematocrit 42.8 Mean Corpuscular Volume 90.7 Mean Corpuscular Hemoglobin 30.3 Mean Corpuscular Hemoglobin Concent 33.5 Red Cell Distribution Width 13.9 Platelet Count 246 Mean Platelet Volume 9.1 Neutrophils (%) (Auto) 70.5 Lymphocytes (%) (Auto) 23.1 Monocytes (%) (Auto) 5.1 Eosinophils (%) (Auto) 0.9 Basophils (%) (Auto) 0.4 Neutrophils # (Auto) 4.5 Lymphocytes # (Auto) 1.5 Monocytes # (Auto) 0.3 Eosinophils # (Auto) 0.1 Basophils # (Auto) 0.0 CBC Comment Sodium Level 145 Potassium Level 4.4 Chloride Level 106 Carbon Dioxide Level 25.3 Anion Gap 14 Blood Urea Nitrogen 8 Creatinine 0.71 Estimated GFR/1.73 m2 90 BUN/Creatinine Ratio 11.3 Glucose Level 112 H Calcium Level 8.9 Total Bilirubin 0.4 Aspartate Amino Transf (AST/SGOT) 17 Alanine Aminotransferase (ALT/SGPT) 26 Alkaline Phosphatase 120 H Total Protein 7.2 Albumin 4.0 Globulin 3.2 Albumin/Globulin Ratio 1.3 Lipase 26 Chemistry Comments EKG/XRAY/CT/US/VASC/MRI CT : Impression CAT SCAN Patient: SEEMA CARY Medical Record: [id number] [facility] : 1980, Age: 44 Sex: Female Location: ER Patient Status: REG ER Service Date/Time: 02/02/251502 Ordering Physician: GEOFF CASTRO THERAPEUTIC STRATEGY LEAD Exam: CT ABDOMEN PELVIS EXAM: CT CT ABDOMEN PELVIS HISTORY: flank pain with right CVA tenderness TECHNIQUE: Volumetric multidetector CT images of the abdomen and pelvis were obtained after the administration of intravenous contrast. All CT scans at this facility use dose modulation, iterative reconstruction, and/or weight based dosing when appropriate to reduce radiation dose to as low as reasonably achievable. COMPARISON: None FINDINGS: [LOWER CHEST]: The partially visualized lung bases are clear without a pleural effusion. [LIVER]: Normal hepatic size without suspicious focal lesion. [GALLBLADDER AND BILIARY TREE]: Trace cholelithiasis [SPLEEN]: Unremarkable. [PANCREAS]: Dilation of the pancreatic head and uncinate process [ADRENAL GLANDS]: Unremarkable [KIDNEYS]: No hydronephrosis. No nephroureterolithiasis. No suspicious focal lesion. [BLADDER]: Decompressed limiting evaluation [REPRODUCTIVE ORGANS]: Retroverted [BOWEL/MESENTERY]: Stomach is normal. No CT evidence of bowel obstruction. Normal appendix. Calcification along the appendix. [ASCITES]: Absent [LYMPHADENOPATHY]: No pathologically enlarged lymph nodes by CT size criteria [VASCULATURE]: No aneurysmal dilatation. [ABDOMINAL WALL]: Unremarkable. [MUSCULOSKELETAL]: No acute fracture or aggressive focal osseous lesion. IMPRESSION: 1. Hydroureteronephrosis or nephroureterolithiasis. 2. Bladder is decompressed limiting evaluation. 3. Cholelithiasis without CT evidence of acute cholecystitis however correlate with clinical exam. 4. Hypoattenuation of the pancreatic head-uncinate process. Correlate with lipase/ amylase. Electronically Signed by:PAULA WATSON MD Date & Time: 02/02/25 154 Dictated by: PAULA WATSON MD Dictation date and time: 02/02/25 154 Primary Care Provider: NO PRIMARY CARE PROVIDER cc: GEOFF CASTRO THERAPEUTIC STRATEGY LEAD ~ Medical Decision Making Findings This 44-year-old female who presents to the emergency department for urinary frequency and right flank pain. Patient states the pain has been there more significantly for the last six days. Patient states she has had some pain off and on in the right CVA area for about a year. Patient denies any dysuria or urinary frequency or urgency or fevers or chills. She reports that she was seen at an urgent care and gave a urine sample, and was told that she probably had a kidney stone. She is currently on antibiotics for urinary tract infection but her only symptom is frequency. She denies chills or fever, but does admit to some nausea without vomiting. Patient's labs were very largely unremarkable. No white count, mildly elevated alk phos, negative lipase, hematuria only, no sign of UTI. CT scan did show gallstones without any sign of cholecystitis but no sign of nephrolithiasis or hydroureter. Patient will follow up with primary care for referral to general surgeon for further eval and treatment of her gallstones. Patient declined any further treatment today and would like to go home at this time. Patient will return to ED with any worsening, concerning or changing symptoms. Additional Comment 44-year-old female with right CVA tenderness and right-sided flank pain. Urinalysis is negative except for a large amount of blood. Noncontrast CT abdomen and pelvis ordered. Ondansetron 4 mg p.o. x1 ordered as patient was evaluated in triage and will need to remain lobby until an ER room is available. Departure Disposition: 01 HOME / SELF CARE / HOMELESS Impression: Primary Impression: Gallstones Condition: Stable Discharge Instructions: Cholelithiasis, [id number] Additional Instructions: Patient's labs were very largely unremarkable. No white count, mildly elevated alk phos, negative lipase, hematuria only, no sign of UTI. CT scan did show gallstones without any sign of cholecystitis but no sign of nephrolithiasis or hydroureter. Patient will follow up with primary care for referral to general surgeon for further eval and treatment of her gallstones. Patient declined any further treatment today and would like to go home at this time. Patient will return to ED with any worsening, concerning or changing symptoms. Referrals: NO PRIMARY CARE PROVIDER (PCP) Signature Scribe Signature: no scribe Attestation: No scribe GEOFF CASTRO THERAPEUTIC STRATEGY LEAD February 02, 2025 15:06 RUDOLPH MOROCHO PAC February 02, 2025 18:10
[2025-02-02 15:27] LABS: BASOPHILS % (AUTO) 0.4 % (0-1); EOSINOPHILS # (AUTO) 0.1 X10'3 (0-0.9); EOSINOPHILS % (AUTO) 0.9 % (0-6); HEMATOCRIT 42.8 % (35.0-45.0); HEMOGLOBIN 14.3 g/dl (12.0-16.0); LYMPHOCYTES # (AUTO) 1.5 X10'3 (1.1-4.8); LYMPHOCYTES % (AUTO) 23.1 % (21-51); MEAN CORPUSCULAR HEMOGLOBIN 30.3 PG (27.0-31.0); MEAN CORPUSCULAR HGB CONC 33.5 g/dL (33.0-36.5); MEAN CORPUSCULAR VOLUME 90.7 FL (78-98); MEAN PLATELET VOLUME 9.1 FL (7.4-10.4); MONOCYTES # (AUTO) 0.3 X10'3 (0-0.9); MONOCYTES % (AUTO) 5.1 % (2-12); NEUTROPHILS # (AUTO) 4.5 X10'3 (1.8-7.7); NEUTROPHILS % (AUTO) 70.5 % (42-75); PLATELET COUNT 246 X10'3 (140-440); RED BLOOD COUNT 4.72 X10'6 (4.20-5.60); RED CELL DISTRIBUTION WIDTH 13.9 % (11.5-14.5); WHITE BLOOD COUNT 6.4 X10'3 (4.5-11.0)
[2025-02-02] MEDS: ondansetron 4mg rapidly disintigrating tab PO ONE (15:28)
[2025-02-02 15:50] LABS: ALANINE AMINOTRANSFERASE 26 U/L (12-78); ALBUMIN/GLOBULIN RATIO 1.3 (1.1-1.5); ALKALINE PHOSPHATASE 120 IU/L (46-116); ANION GAP 14 (8-16); ASPARTATE AMINO TRANSFERASE 17 U/L (10-37); BILIRUBIN,TOTAL 0.4 MG/DL (0.1-1.0); BLOOD UREA NITROGEN 8 MG/DL (7-18); BUN/CREATININE RATIO 11.3 (10.0-20.0); CALCIUM 8.9 MG/DL (8.5-10.1); CHLORIDE 106 MMOL/L (99-107); CREATININE 0.71 MG/DL (0.40-0.90); GLUCOSE 112 MG/DL (70-104); LIPASE 26 U/L (16-77); POTASSIUM 4.4 MMOL/L (3.5-5.1); SODIUM 145 MMOL/L (135-145); TOTAL CARBON DIOXIDE 25.3 MMOL/L (24-32); TOTAL PROTEIN 7.2 G/DL (6.4-8.2); eCRCL 103 ML/MIN; eGFR 90 ML/MIN
--- NOTE | 2025-02-02 16:26 | RADIOLOGY REPORT ---
EXAM: CT CT ABDOMEN PELVIS HISTORY: flank pain with right CVA tenderness TECHNIQUE: Volumetric multidetector CT images of the abdomen and pelvis were obtained after the admin istration of intravenous contrast. All CT scans at this facility use dose modulation, iterative recon struction, and/or weight based dosing when appropriate to reduce radiation dose to as low as reasonab ly achievable. COMPARISON: None FINDINGS: [LOWER CHEST]: The partially visualized lung bases are clear without a pleural effusion. [LIVER]: Normal hepatic size without suspicious focal lesion. [GALLBLADDER AND BILIARY TREE]: Trace cholelithiasis [SPLEEN]: Unremarkable. [PANCREAS]: Dilation of the pancreatic head and uncinate process [ADRENAL GLANDS]: Unremarkable [KIDNEYS]: No hydronephrosis. No nephroureterolithiasis. No suspicious focal lesion. [BLADDER]: Decompressed limiting evaluation [REPRODUCTIVE ORGANS]: Retroverted [BOWEL/MESENTERY]: Stomach is normal. No CT evidence of bowel obstruction. Normal appendix. Calcifica tion along the appendix. [ASCITES]: Absent [LYMPHADENOPATHY]: No pathologically enlarged lymph nodes by CT size criteria [VASCULATURE]: No aneurysmal dilatation. [ABDOMINAL WALL]: Unremarkable. [MUSCULOSKELETAL]: No acute fracture or aggressive focal osseous lesion. IMPRESSION: 1. Hydroureteronephrosis or nephroureterolithiasis. 2. Bladder is decompressed limiting evaluation. 3. Cholelithiasis without CT evidence of acute cholecystitis however correlate with clinical exam. 4. Hypoattenuation of the pancreatic head-uncinate process. Correlate with lipase/ amylase.
[2025-02-02 18:15] VITALS: BP 130/84; PULSE 75; RESP 14; O2SAT 98
== END 2025-02-02 18:15 | disposition home or self-care (01) ==
LOC: ER 13:04
DX: K80.20 Calculus of gallbladder without cholecystitis without obstruction (principal); J45.909 Unspecified asthma, uncomplicated; F12.90 Cannabis use, unspecified, uncomplicated; Z88.0 Allergy status to penicillin; Z88.2 Allergy status to sulfonamides; Z88.8 Allergy status to other drugs, medicaments and biological substances
CPT/HCPCS: 36415; 74176; 80053; 81001; 81025; 83690; 85025; 99284

== ENCOUNTER 2025-02-12 16:53 | Emergency (ER) | payer MEDICARE, MEDICAID ==
[~2025-02-12] VITALS: Ht 170.2 cm; Wt 94.5 kg
[2025-02-12 16:55] VITALS: TEMP 97.9
--- NOTE | 2025-02-12 17:04 | ELECTROCARDIOGRAPH REPORT ---
[facility] Test Date: 2025-02-12 Test Time: 17:02:25 Pat Name: SEEMA CARY Department: [facility]- Patient ID: [facility]-[id number] Room: Gender: F Principal Hardware Architect: : 1980 Requested By: ELEANOR NAGEL Order Number: [id number] Reading MD: Measurements Intervals [place] Rate: 114 P: 78 NE: 114 QRS: 82 QRSD: 90 T: 43 QT: 327 QTc: 451 Interpretive Statements Sinus tachycardia Minimal ST depression, inferior leads Please click the below link to view image of tracing.
[2025-02-12 17:09] LABS: BASOPHILS % (AUTO) 0.4 % (0-1); EOSINOPHILS # (AUTO) 0.1 X10'3 (0-0.9); EOSINOPHILS % (AUTO) 0.6 % (0-6); HEMOGLOBIN 14.4 g/dl (12.0-16.0); LYMPHOCYTES # (AUTO) 2.1 X10'3 (1.1-4.8); LYMPHOCYTES % (AUTO) 23.1 % (21-51); MEAN CORPUSCULAR HEMOGLOBIN 30.9 PG (27.0-31.0); MEAN CORPUSCULAR HGB CONC 34.4 g/dL (33.0-36.5); MEAN CORPUSCULAR VOLUME 89.8 FL (78-98); MEAN PLATELET VOLUME 8.8 FL (7.4-10.4); MONOCYTES # (AUTO) 0.5 X10'3 (0-0.9); MONOCYTES % (AUTO) 5.1 % (2-12); NEUTROPHILS # (AUTO) 6.5 X10'3 (1.8-7.7); NEUTROPHILS % (AUTO) 70.8 % (42-75); PLATELET COUNT 268 X10'3 (140-440); RED BLOOD COUNT 4.68 X10'6 (4.20-5.60); RED CELL DISTRIBUTION WIDTH 13.6 % (11.5-14.5); WHITE BLOOD COUNT 9.2 X10'3 (4.5-11.0)
[2025-02-12 17:21] LABS: BILIRUBIN,URINE NEGATIVE (Neg); CLARITY,URINE CLEAR (Clear); COLOR,URINE YELLOW (Yellow); GLUCOSE, URINE NEGATIVE (Neg); KETONES,URINE NEGATIVE (Neg); LEUKOCYTE ESTERASE ,URINE NEGATIVE (Neg); NITRITES, URINE NEGATIVE (Neg); OCCULT BLOOD,URINE NEGATIVE (Neg); PH,URINE 6.5 (4.8-8.0); PROTEIN,URINE NEGATIVE (Neg); URINE HCG NEGATIVE (NEG); UROBILINOGEN,URINE 0.2 E.U/dL (0.2-1.0)
[2025-02-12 17:22] LABS: UA COLLECTION TYPE CLN CATCH MIDSTREAM
[2025-02-12 17:29] LABS: ALANINE AMINOTRANSFERASE 22 U/L (12-78); ALBUMIN 3.9 G/DL (3.4-5.0); ALBUMIN/GLOBULIN RATIO 1.2 (1.1-1.5); ALKALINE PHOSPHATASE 102 IU/L (46-116); ANION GAP 12 (8-16); ASPARTATE AMINO TRANSFERASE 12 U/L (10-37); BILIRUBIN,TOTAL 0.4 MG/DL (0.1-1.0); BLOOD UREA NITROGEN 8 MG/DL (7-18); BUN/CREATININE RATIO 9.8 (10.0-20.0); CALCIUM 8.7 MG/DL (8.5-10.1); CHLORIDE 103 MMOL/L (99-107); CREATININE 0.82 MG/DL (0.40-0.90); GLUCOSE 92 MG/DL (70-104); LIPASE 38 U/L (16-77); POTASSIUM 3.9 MMOL/L (3.5-5.1); SODIUM 139 MMOL/L (135-145); TOTAL CARBON DIOXIDE 24.4 MMOL/L (24-32); TOTAL PROTEIN 7.1 G/DL (6.4-8.2); eCRCL 86 ML/MIN; eGFR 76 ML/MIN
--- NOTE | 2025-02-12 17:31 | RADIOLOGY REPORT ---
CHEST RADIOGRAPH Indication: CP Technique: Single frontal view of the chest was obtained COMPARISON: None FINDINGS: Lines and Tubes: None Lungs: Clear Pleura: No effusion. No pneumothorax. Cardiomediastinal contours: Unremarkable Bones: Unremarkable IMPRESSION: No evidence of acute cardiopulmonary disease.
--- NOTE | 2025-02-12 17:52 | Physician Documentation ---
History of Present Illness Chief Complaint: Abdominal Pain Stated Complaint: CP/DIZZY SPELLS Time Seen by MD: 17:23 Primary Medical Doctor: [facility] DR. OLIVARES Mode of Arrival: Ambulatory HPI 44-year-old female presents to the ED with a complaint of right upper quadrant abdominal pain. She denies any exacerbating or alleviating factors. States she also feels general malaise and does not feel like herself.. She does have a history of gallstones. Denies any fevers Medication Reconciliation Allergies: Coded Allergies: Penicillins (Verified Allergy, Mild, rash, 07/08/23) Sulfa (Sulfonamide Antibiotics) (Unverified Allergy, Mild, RASH, 07/08/23) Scheduled Clindamycin HCL* (Clindamycin HCL*), 1 CAP PO Q8H Clindamycin HCL* (Clindamycin HCL*), 1 CAP PO Q8H Dicyclomine Hcl* (Bentyl*), 1 CAP PO Q12H Famotidine (Pepcid), 1 TAB PO Q12H Famotidine (Pepcid), 1 TAB PO DAILY ONDANSETRON ODT 4mg tablet (Ondansetron Odt), 1 TABLET PO Q6H Ondansetron Hcl (Zofran), 1 TAB PO Q8H Scheduled PRN Promethazine Hcl (Phenergan), 1 TAB PO BID PRN for prn Miscellaneous Medications Home Med List (No Home Medications), (Reported) Past Medical History Past Medical History: Seizures, Asthma Past Surgical History: no surgical history Alcohol Use: Occasionally Drug Use: marijuana Lives with: Family Lives In: Home Review of Systems All Other Systems at this time: Reviewed and Negative ROS As stated above in the HPI, otherwise all systems are reviewed and negative. Physical Exam Vital Signs: Temperature: 97.9, Source: Temporal, Heart Rate: 78, Respiratory Rate: 15, BP: 130/77, Pulse Oximetry: 95, Weight: 94.550 Oxygen Flow Rate: 0 Physical Exam General: Alert, no apparent distress. Gastrointestinal: Soft, tender in the right upper quadrant Extremities: Normal range of motion, no deformity. Neurologic: Oriented x4. Psychiatric: Normal mood and affect. Skin: Normal color, warm and dry. No edema, no ecchymosis. Progress Results/Orders Results/Orders Orders - NORBERTO,CHELSEY H [employer]ITION ASSEMBLY I LABORER Ultrasound Of Abdomen (02/12/25 17:46) Vital Signs 02/12/25 02/12/25 02/12/25 16:55 17:37 17:38 Temp 97.9 Pulse 110 78 Resp 18 15 15 B/P (MAP) 137/89 130/77 (94) Pulse Ox 91 95 O2 Flow Rate 0 Laboratory Tests Test 02/12/25 17:00 02/12/25 17:01 02/12/25 17:05 Sodium Level 139 Potassium Level 3.9 Chloride Level 103 Carbon Dioxide Level 24.4 Anion Gap 12 Blood Urea Nitrogen 8 Creatinine 0.82 Estimated GFR/1.73 m2 76 BUN/Creatinine Ratio 9.8 L Glucose Level 92 Calcium Level 8.7 Total Bilirubin 0.4 Aspartate Amino Transf (AST/SGOT) 12 Alanine Aminotransferase (ALT/SGPT) 22 Alkaline Phosphatase 102 Total Protein 7.1 Albumin 3.9 Globulin 3.2 Albumin/Globulin Ratio 1.2 Lipase 38 Chemistry Comments White Blood Count 9.2 Red Blood Count 4.68 Hemoglobin 14.4 Hematocrit 42.0 Mean Corpuscular Volume 89.8 Mean Corpuscular Hemoglobin 30.9 Mean Corpuscular Hemoglobin Concent 34.4 Red Cell Distribution Width 13.6 Platelet Count 268 Mean Platelet Volume 8.8 Neutrophils (%) (Auto) 70.8 Lymphocytes (%) (Auto) 23.1 Monocytes (%) (Auto) 5.1 Eosinophils (%) (Auto) 0.6 Basophils (%) (Auto) 0.4 Neutrophils # (Auto) 6.5 Lymphocytes # (Auto) 2.1 Monocytes # (Auto) 0.5 Eosinophils # (Auto) 0.1 Basophils # (Auto) 0.0 CBC Comment Urine Specimen Description Cln catch midstream Urine Color Yellow Urine Clarity Clear Urine pH 6.5 Urine Specific [place] 1.010 Urine Protein Negative Urine Glucose (UA) Negative Urine Ketones Negative Urine Occult Blood Negative Urine Nitrite Negative Urine Bilirubin Negative Urine Urobilinogen 0.2 Urine Leukocyte Esterase Negative Urine Culture Indicated Not ind Volume Urine Centrifuged 10 ml Urine HCG, Qualitative Negative Urine Comment EKG/XRAY/CT/US/VASC/MRI Chest X-Ray : Additional Comments Chest x-ray interpreted by myself today shows normal mediastinum, no large infiltrate, no large effusion. DIAGNOSTIC RADIOLOGY Patient: SEEMA CARY Medical Record: [id number] [facility] : 1980, Age: 44 Sex: Female Location: ER Patient Status: [facility] ER Service Date/Time: 02/12/251711 Ordering Physician: ELEANOR NAGEL MD Exam: CHEST,SINGLE VIEW CHEST RADIOGRAPH Indication: CP Technique: Single frontal view of the chest was obtained COMPARISON: None FINDINGS: Lines and Tubes: None Lungs: Clear Pleura: No effusion. No pneumothorax. Cardiomediastinal contours: Unremarkable Bones: Unremarkable IMPRESSION: No evidence of acute cardiopulmonary disease. Electronically Signed by:GIANNA PETER DO Date & Time: 02/12/251728 Dictated by: GIANNA PETER DO Dictation date and time: 02/12/251708 Primary Care Provider: NO PRIMARY CARE PROVIDER cc: ELEANOR NAGEL MD ~ Ultrasound : Impression ULTRASOUND Patient: SEEMA CARY Medical Record: [id number] [facility] : 1980, Age: 44 Sex: Female Location: ER Patient Status: [facility] ER Service Date/Time: 02/12/251745 Ordering Physician: CHELSEY THORNTON NP Exam: ULTRASOUND OF ABDOMEN Clinical History gallbladder Comparison None Technique: Standard grayscale images were acquired in multiple planes with additional Doppler interrogation when appropriate. Without Contrast SEEMA CARY, [id number] Findings: Liver: No mass or ductal dilatation. dense echotexture. Liver measures 17.7 cm Gallbladder: Cholelithiasis. No wall thickening or pericholecystic fluid. Common bile duct: Within normal limits. Right kidney: No kidney stone or hydronephrosis. Pancreas: obscured by bowel gas. Aorta: No aneurysm. IVC: Unremarkable Impression: 1. Cholelithiasis. No wall thickening or inflammation 2. Dense echotexture of the liver suggesting steatosis 3. No kidney stones or hydronephrosis This report was electronically signed by Gagan Martinez MD on 02/12/2025 9:48:07 PM. Electronically Signed by:GAGAN MARTINEZ MD Date & Time: 02/12/252149 Dictated by: GAGAN MARTINEZ MD Dictation date and time: 02/12/252149 Primary Care Provider: NO PRIMARY CARE PROVIDER cc: CHELSEY THORNTON [employer]SEM[employer] I LABORER ~ Medical Decision Making Findings 44-year-old female presents to the ED with a complaint of right upper quadrant abdominal pain. She denies any exacerbating or alleviating factors. States she also feels general malaise and does not feel like herself.. She does have a history of gallstones. Denies any fevers Patient did have unremarkable labs, abdominal ultrasound did show gallstones only without any sign of cholecystitis. Patient unfortunately left or eloped out of the ED today prior to results being given of the abdominal ultrasound. Patient will return to ED with any worsening, concerning or changing symptoms. Patient will follow up with primary care in 2-5 days if no better as needed sooner. Differential Dx:Considerations: Include: AAA, -Complete, -Incomplete, -Inevitable, -Missed, -Threatened, Abruptio placentae, Angina/[place], Aortic dissection, Appendicitis, Bowel obstruction, Cholangitis, Cholelithasis, Constipation, Diverticular disease, Esophageal rupture, Esophagitis, Gastritis/PUD, Gastroenteritis, GI hemorrhage, Hernia, Hepatitis, Inflammatory BD, Ischemic bowel, Ovarian cyst/torsion, Pancreatitis, PID, Porphyria, Trauma, intraabdominal, Urinary obstruction, Urinary tract infection, Urolithiasis, Other Departure Disposition: LEFT AWOL/ELOPED Impression: Primary Impression: Cholelithiasis without obstruction Qualified Codes: K80.80 - Other cholelithiasis without obstruction Condition: Stable Discharge Instructions: Abdominal Pain (Nonspecific) Additional Instructions: Patient did have unremarkable labs, abdominal ultrasound did show gallstones only without any sign of cholecystitis. Patient unfortunately left or eloped out of the ED today prior to results being given of the abdominal ultrasound. Patient will return to ED with any worsening, concerning or changing symptoms. Patient will follow up with primary care in 2-5 days if no better as needed sooner. Referrals: NO PRIMARY CARE PROVIDER (PCP) Signature Scribe Signature: No scribe Attestation: No scribe CHELSEY THORNTON [employer]MUNITION ASSEMBLY I LABORER February 12, 2025 17:52 RUDOLPH MOROCHO PAC February 13, 2025 00:14
[2025-02-12] MEDS: pantoprazole 40mg Tablet.DR PO STA (18:51)
[2025-02-12] MEDS: mag hydrox/Alum hydrox/simeth 30ml oral suspension PO STA (18:51)
[2025-02-12 20:37] VITALS: BP 112/78; PULSE 78; RESP 16; O2SAT 97
--- NOTE | 2025-02-12 21:50 | RADIOLOGY REPORT ---
Clinical History gallbladder Comparison None Technique: Standard grayscale images were acquired in multiple planes with additional Doppler interro gation when appropriate. Without Contrast SEEMA CARY, [id number] Findings: Liver: No mass or ductal dilatation. dense echotexture. Liver measures 17.7 cm Gallbladder: Cholelithiasis. No wall thickening or pericholecystic fluid. Common bile duct: Within normal limits. Right kidney: No kidney stone or hydronephrosis. Pancreas: obscured by bowel gas. Aorta: No aneurysm. IVC: Unremarkable Impression: 1. Cholelithiasis. No wall thickening or inflammation 2. Dense echotexture of the liver suggesting steatosis 3. No kidney stones or hydronephrosis This report was electronically signed by Gagan Domínguez MD on 02/12/2025 9:48:07 PM.
== END 2025-02-12 21:50 | disposition left against medical advice (07) ==
LOC: ER 16:54
DX: K80.20 Calculus of gallbladder without cholecystitis without obstruction (principal); J45.909 Unspecified asthma, uncomplicated; Z88.0 Allergy status to penicillin; Z88.2 Allergy status to sulfonamides; Z88.8 Allergy status to other drugs, medicaments and biological substances
CPT/HCPCS: 36415; 71045; 76700; 80053; 81003; 81025; 83690; 85025; 93005; 99285

== ENCOUNTER 2025-04-10 13:06 | Emergency (ER) | payer MEDICARE, MEDICAID ==
[~2025-04-10] VITALS: Ht 175.3 cm; Wt 85.9 kg
[2025-04-10 13:09] VITALS: TEMP 97.5
--- NOTE | 2025-04-10 13:13 | Physician Documentation ---
History of Present Illness ~ Chief Complaint: Abdominal Pain Stated Complaint: ABD PAIN Time Seen by MD: 13:20 Primary Medical Doctor: [facility] DR. OLIVARES HPI 44-year-old female presents to the emergency department due to concerns for abdominal pain and overall feeling unwell. She denies chills or fevers. She is status post cholecystectomy by Dr. Pickens on 04/03/2025. Reports that after the cholecystectomy she had pain and was on oxycodone for a couple of weeks. States that she ran out and has not been able to take any since but her pain has continued. Reports that she has been taking Tylenol but stopped because she got a nosebleed. Her pain is around the area where her gallbladder was and radiates to the rest of her abdomen. Additionally she has felt very sweaty over the last couple of weeks and has also been nauseated. She also endorses diarrhea during this time and frequent urination. Denies any dysuria. Denies any real fevers but states that she has felt hot and cold. Denies any vomiting or any other associated symptoms. Medication Reconciliation Allergies: Coded Allergies: Sulfa (Sulfonamide Antibiotics) (Unverified Allergy, Mild, RASH, 04/10/25) Scheduled Buprenorphine Hcl/Naloxone Hcl (Suboxone 2 Mg-0.5 Mg Sl Film), 3 STRIP SL DAILY Clindamycin HCL* (Clindamycin HCL*), 1 CAP PO Q8H Clindamycin HCL* (Clindamycin HCL*), 1 CAP PO Q8H Dicyclomine Hcl* (Bentyl*), 1 CAP PO Q12H Famotidine (Pepcid), 1 TAB PO Q12H Famotidine (Pepcid), 1 TAB PO DAILY ONDANSETRON ODT 4mg tablet (Ondansetron Odt), 1 TABLET PO Q6H Ondansetron Hcl (Zofran), 1 TAB PO Q8H Scheduled PRN ONDANSETRON ODT 4mg tablet (Ondansetron Odt), 1 TAB PO Q6H PRN PRN for nausea/vomiting Promethazine Hcl (Phenergan), 1 TAB PO BID PRN for prn Miscellaneous Medications Home Med List (No Home Medications), (Reported) Past Medical History Past Medical History: Seizures, Asthma Past Surgical History: no surgical history Alcohol Use: Occasionally Drug Use: marijuana Lives with: Family Lives In: Home Review of Systems All Other Systems at this time: Reviewed and Negative ROS As stated above in the HPI, otherwise all systems are reviewed and negative. Physical Exam Vital Signs: Temperature: 97.5, Source: Temporal, Heart Rate: 124, Respiratory Rate: 18, BP: 139/88, Pulse Oximetry: 99, Weight: 85.910 Oxygen Flow Rate: 0 Physical Exam General: Alert, no apparent distress. Neck: Full range of motion. Respiratory: Lungs clear, no respiratory distress. Chest: No accessory muscle use. Cardiovascular: Regular rate and rhythm, no murmurs. Tachycardic. Gastrointestinal: Soft, nontender, nondistended. Bowels sounds present. Full exam not performed in triage including no inspection of surgical site done. Extremities: Normal range of motion, no deformity. Neurologic: Oriented x4. Psychiatric: Normal mood and affect. Skin: Normal color, warm and dry. No edema, no ecchymosis. Progress Results/Orders Results/Orders Orders - MILAGROS DELGADO MD Culture Blood (04/10/25 14:12) Chest,Single View (04/10/25 14:26) Ct Abdomen Pelvis (04/10/25 15:00) Drug Screen, Urine (04/10/25 14:14) Completed Orders - MILAGROS DELGADO MD Cbc/Diff (04/10/25 14:00) Electrocardiogram (04/10/25 14:12) CK (04/10/25 14:12) Chest,Single View (04/10/25 14:26) Ct Abdomen Pelvis (04/10/25 15:00) Hs Troponin I W Calculations (04/10/25 14:12) Lacticsepsis (04/10/25 14:12) Buprenorphine/Naloxone Sl Film (Suboxone (04/10/25 14:15) Ethanol (04/10/25 14:14) Iohexol 300mg/Ml 100ml Inj. (Omnipaque-3 (04/10/25 14:34) Normal Saline 1000ml (0.9% Sodium Chlori (04/10/25 15:40) Ondansetron Inj. (Zofran 4mg/2ml Vial) (04/10/25 15:40) Medications Received in ER Medications (Trade) Dose Ordered Sig/Gris Route PRN Reason Start Time Stop Time Status Last Admin Dose Admin (Suboxone 8MG-2MG SL film) 1 film NOW ONCE SL 04/10/25 14:15 04/10/25 14:18 DC 04/10/25 15:14 1 FILM Sodium Chloride 1,000 ml @ 1,000 mls/hr ONCE ONCE IV 04/10/25 15:40 04/10/25 16:39 DC 04/10/25 16:02 1,000 MLS/HR (Zofran 4mg/2ml vial) 4 mg ONCE ONCE IV 04/10/25 15:40 04/10/25 15:41 DC 04/10/25 16:02 4 MG Vital Signs 04/10/25 04/10/25 04/10/25 13:09 13:51 14:30 Temp 97.5 Pulse 124 87 Resp 18 22 18 B/P (MAP) 139/88 145/87 (106) Pulse Ox 99 98 O2 Flow Rate 0 0 Laboratory Tests Test 04/10/25 13:22 04/10/25 13:32 04/10/25 14:42 Urine Specimen Description Urinal Urine Color Yellow Urine Clarity Slightly cloudy Urine pH 6.0 Urine Specific [place] <=1.005 Urine Protein Negative Urine Glucose (UA) Negative Urine Ketones Negative Urine Occult Blood Negative Urine Nitrite Negative Urine Bilirubin Negative Urine Urobilinogen 0.2 Urine Leukocyte Esterase Negative Urine RBC 0-2 Urine WBC 0-4 Urine Squamous Epithelial Cells Moderate Urine Bacteria Few Urine Culture Indicated Not ind Volume Urine Centrifuged 10 ml Urine Comment Sodium Level 138 Potassium Level 4.1 Chloride Level 103 Carbon Dioxide Level 26.1 Anion Gap 9 Blood Urea Nitrogen 18 Creatinine 0.80 Estimated GFR/1.73 m2 78 BUN/Creatinine Ratio 22.5 H Glucose Level 97 Calcium Level 8.9 Total Bilirubin 0.4 Direct Bilirubin 0.1 Aspartate Amino Transf (AST/SGOT) 14 Alanine Aminotransferase (ALT/SGPT) 26 Alkaline Phosphatase 90 Total Protein 7.4 Albumin 3.8 Globulin 3.6 Albumin/Globulin Ratio 1.1 Lipase 35 Chemistry Comments White Blood Count 8.7 Red Blood Count 5.02 Hemoglobin 14.5 Hematocrit 44.1 Mean Corpuscular Volume 88.0 Mean Corpuscular Hemoglobin 29.0 Mean Corpuscular Hemoglobin Concent 32.9 L Red Cell Distribution Width 14.3 Platelet Count 241 Mean Platelet Volume 9.3 Neutrophils (%) (Auto) 71.7 Lymphocytes (%) (Auto) 22.0 Monocytes (%) (Auto) 4.9 Eosinophils (%) (Auto) 0.9 Basophils (%) (Auto) 0.5 Neutrophils # (Auto) 6.3 Lymphocytes # (Auto) 1.9 Monocytes # (Auto) 0.4 Eosinophils # (Auto) 0.1 Basophils # (Auto) 0.0 CBC Comment Lactic Acid Level 0.8 Total Creatine Kinase 59 Troponin I High Sensitivity 4 Ethyl Alcohol Level < 10 Microbiology Date/Time Source Procedure Growth Status 04/10/25 14:42 Blood Arm Right Blood Culture - Preliminary NEGATIVE (LESS THAN 24 HOURS) Resulted EKG/XRAY/CT/US/VASC/MRI EKG : Additional Comment EKG as interpreted by ED MD showing normal sinus rhythm with a rate of 94 beats per minute, normal axis, no ischemia Chest X-Ray : Additional Comments EXAM: DI CHEST,SINGLE VIEW Indication: Pain Technique: Single frontal view of the chest was obtained Comparison: DI CHEST,SINGLE VIEW on DOS: 02/12/25 FINDINGS: Lines and Tubes: None Lungs: No focal consolidation. Pleura: No effusion. No pneumothorax. Cardiomediastinal contours: Unremarkable Bones: No acute osseous abnormality. IMPRESSION: No acute cardiopulmonary disease. : Impression CT abdomen and pelvis with contrast Comparison: 02/02/2025 INDICATION: abdominal pain s/p cholecystectomy TECHNIQUE: Serial axial images were performed through the abdomen and pelvis and then reformatted in the sagittal and coronal plane. All CT scans at this medical facility are performed using dose modulation techniques as appropriate to a performed exam including the following: Automated exposure control was utilized; adjustment of the MA and/or KvP according to patient size; and use of iterative reconstruction technique. FINDINGS: Liver and spleen are normal in size without focal mass. No renal masses, stones or hydronephrosis. No masses or enlargement of the adrenal glands or pancreas. No biliary dilatation. Gallbladder has been removed.No distention of bowel loops to suggest mechanical obstruction of bowel. The appendix is not seen. No free fluid. Within the pelvis, bladder is smooth walled without stones. No abnormal masses or fluid collections.. IMPRESSION: 1. There is no acute pathology in the abdomen or pelvis. Computed Tomographic Radiation Dosimetry Report: Total CTDI vol = 27 mGy Total DLP = 1477 mGy-cm Low dose protocols were performed. Medical Decision Making Additional Comments 44-year-old female presenting with postoperative pain as well as what I suspect is opioid withdrawal. Patient had a cholecystectomy done about a month and a half ago and was given oxycodone to take. Patient was taken this scheduled as opposed to a as needed basis and then suddenly stopped. Since she stopped she has been having the symptoms that she is presenting with. Her lab workup and imaging studies in the ED today are unremarkable. I did give the patient one dose of Suboxone which improved her symptoms. Additionally we did give her a couple L of IV normal saline as well as IV Zofran with complete resolution of symptoms. I educated the patient regarding our findings and her diagnosis and advised her that this can happen with opioids. I explained to the words that these are withdrawal symptoms from her opioid use. I educated her on how she should take pain medications after a surgical procedure. At this point in time she is stable and safe to be discharged home as she has improved and her vitals are normal. I will prescribe her a seven day taper of Suboxone for these opioid withdrawal symptoms. Additionally I advised her that should she have any further pain she should just take Tylenol or ibuprofen as needed. The patient was also prescribe some Zofran for ongoing nausea. She is to follow up closely with her primary care physician. Return to the ED with any acutely worsening symptoms. Departure Disposition: 01 HOME / SELF CARE / HOMELESS Impression: Primary Impression: Postoperative pain Additional Impression: Opioid withdrawal Discharge Instructions: Opioid Withdrawal Additional Instructions: You are experiencing symptoms of opioid withdrawal from their use of oxycodone after your surgery and then suddenly stopping. Time prescribing UA seven days taper dose of Suboxone. Please take this medication as prescribed. For pain control you can take ibuprofen or Tylenol [id number] as this is much safer. Please take the medication and follow up closely with your primary care physician in the next 2-5 days. Please return to the ED with any acutely worsening symptoms. Referrals: NO PRIMARY CARE PROVIDER (PCP) Prescriptions ONDANSETRON ODT 4mg tablet (ONDANSETRON ODT) 4 Mg Tab.rapdis 1 TAB PO Q6H PRN PRN for nausea/vomiting for 4 Days, #16 TAB 0 Refills Prov: MILAGROS DELGADO MD 04/10/25 Buprenorphine Hcl/Naloxone Hcl (Suboxone 2 Mg-0.5 Mg Sl Film) 2 Mg-0.5 Mg Film 3 STRIP SL DAILY for 7 Days, #15 STRIP 4 strips daily for days 1 3 trips daily for days 2-3 2 strips daily for days 4-5 1 strip daily for days 6-7 Prov: MILAGROS DELGADO MD 04/10/25 Signature Scribe Signature: x Attestation: GEOFF Freitas NP Apr 10, 2025 13:13 MILAGROS DELGADO MD Apr 10, 2025 14:17
[2025-04-10 13:54] LABS: LEUKOCYTE ESTERASE ,URINE NEGATIVE (Neg); NITRITES, URINE NEGATIVE (Neg); OCCULT BLOOD,URINE NEGATIVE (Neg)
[2025-04-10 13:57] LABS: CREATININE 0.80 MG/DL (0.40-0.90); TOTAL CARBON DIOXIDE 26.1 MMOL/L (24-32); eCRCL 95 ML/MIN; eGFR 78 ML/MIN
[2025-04-10 13:58] LABS: UA COLLECTION TYPE URINAL
[2025-04-10 13:59] LABS: SQUAMOUS EPITHELIAL CELL,UR MODERATE /LPF (FEW)
--- NOTE | 2025-04-10 14:23 | ELECTROCARDIOGRAPH REPORT ---
[facility] Test Date: 2025-04-10 Test Time: 14:20:53 Pat Name: SEEMA CARY Department: EMERGENCY ROOM Room: Gender: F [employer] Supervisor: : 1980 Requested By: MILAGROS DELGADO Order Number: [id number] Reading MD: Measurements Intervals [place] Rate: 94 P: 60 MS: 129 QRS: 39 QRSD: 90 T: 37 QT: 356 QTc: 446 Interpretive Statements Sinus rhythm Please click the below link to view image of tracing.
[2025-04-10 14:30] VITALS: BP 145/87; PULSE 87; RESP 18; O2SAT 98
[2025-04-10] MEDS ORDERED: iohexol 300mg/ml 100ml inj. ONE (14:34)
--- NOTE | 2025-04-10 14:43 | RADIOLOGY REPORT ---
EXAM: DI CHEST,SINGLE VIEW Indication: Pain Technique: Single frontal view of the chest was obtained Comparison: DI CHEST,SINGLE VIEW on DOS: 02/12/25 FINDINGS: Lines and Tubes: None Lungs: No focal consolidation. Pleura: No effusion. No pneumothorax. Cardiomediastinal contours: Unremarkable Bones: No acute osseous abnormality. IMPRESSION: No acute cardiopulmonary disease.
[2025-04-10 14:52] LABS: MEAN PLATELET VOLUME 9.3 FL (7.4-10.4); RED CELL DISTRIBUTION WIDTH 14.3 % (11.5-14.5)
[2025-04-10 15:08] LABS: ETHANOL < 10 MG/DL (<10)
[2025-04-10] MEDS: buprenorphine/naloxone 8MG-2MG SUBlingual film SL ONE (15:14)
--- NOTE | 2025-04-10 15:35 | RADIOLOGY REPORT ---
CT abdomen and pelvis with contrast Comparison: 02/02/2025 INDICATION: abdominal pain s/p cholecystectomy TECHNIQUE: Serial axial images were performed through the abdomen and pelvis and then reformatted in the sagittal and coronal plane. All CT scans at this medical facility are performed using dose modula tion techniques as appropriate to a performed exam including the following: Automated exposure contro l was utilized; adjustment of the MA and/or KvP according to patient size; and use of iterative recon struction technique. FINDINGS: Liver and spleen are normal in size without focal mass. No renal masses, stones or hydronep hrosis. No masses or enlargement of the adrenal glands or pancreas. No biliary dilatation. Gallbladde r has been removed.No distention of bowel loops to suggest mechanical obstruction of bowel. The appen avery is not seen. No free fluid. Within the pelvis, bladder is smooth walled without stones. No abnorm al masses or fluid collections.. IMPRESSION: 1. There is no acute pathology in the abdomen or pelvis. Computed Tomographic Radiation Dosimetry Report: Total CTDI vol = 27 mGy Total DLP = 1477 mGy-cm Low dose protocols were performed.
[2025-04-10] MEDS ORDERED: BUPR1FIL17 SL (16:01)
[2025-04-10] MEDS: ondansetron/PF 4mg/2ml inj IV ONE (16:02)
[2025-04-10] MEDS: normal saline 1000ml 1,000 ML IV ONE (16:02)
[2025-04-10] MEDS ORDERED: ONDA-243 PO (16:03)
[2025-04-10 18:39] LABS: URINE AMPHETAMINE SCREEN NEGATIVE (Neg); URINE BARBITUATE SCREEN NEGATIVE (Neg); URINE BENZODIAZEPINES SCREEN NEGATIVE (Neg); URINE CANNABINOID SCREEN NEGATIVE (Neg); URINE COCAINE SCREEN NEGATIVE (Neg); URINE METHADONE SCREEN NEGATIVE (Neg); URINE OPIATE SCREEN NEGATIVE (Neg); URINE PHENCYCLIDINE SCREEN NEGATIVE (Neg)
== END 2025-04-10 17:00 | disposition home or self-care (01) ==
LOC: ER 13:07
DX: G89.18 Other acute postprocedural pain (principal); F11.23 Opioid dependence with withdrawal; R10.9 Unspecified abdominal pain; J45.909 Unspecified asthma, uncomplicated; F12.90 Cannabis use, unspecified, uncomplicated; Z88.2 Allergy status to sulfonamides; Z88.8 Allergy status to other drugs, medicaments and biological substances
CPT/HCPCS: 36415; 71045; 74177; 80048; 80076; 80305; 81001; 82550; 83605; 83690; 84484; 85025; 87040; 93005; 96361; 96374; 99285; G0480; J2405; J7030; Q9967; 80320